=== PATIENT | female | born 1960 | race African-American/Black ===

== ENCOUNTER → 2016-08-12 | Outpatient (CLI) | payer BC ==
[~2016-08-12] MED LIST: AVALIDE 150-12.1 TAB PO; CAPTOPRIL25 MG; CEPHALEXIN500 M1 PO; COREG CR20 MG
--- NOTE | ~2016-08-12 | MY11 ---
[facility] A Service of [facility] RADIOLOGY TEXT RESULTS PATIENT: PRADEEP MONTOYA LOCATION: [facility] : 62 UNIT #: [id number] AGE: [address]: Ramy Moran APRN SEX: F ORDER DR: [id number] [facility] [address] [place], [place] [address] [id number] O MR#: [id number] Acc #: [id number] NAME: PRADEEP MONTOYA : 1960 SEX: F STUDY DATE/TIME: 08/12/2016 9:22 UNIT: [facility] ROOM: STUDY DESCRIPTION: MY Mammogram Screening [facility] Attending Physician: Ramy Moran A.P.R.N. Referring Physician: Ramy Moran A.P.R.N. Ordering Physician: Ramy Moran A.P.R.N. Primary Care Physician: Ramy Moran A.P.R.N. MEDICAL IMAGING REPORT This report is preliminary unless electronic signature is present EXAM Digital screening mammogram 08/12/2016 HISTORY 56-year-old woman no risk elevation. Annual screen. COMPARISON Mammograms date to 12/12/2009 with most recent 08/22/2014. FINDINGS Digital imaging of each breast was completed utilizing screening protocol. Review includes FDA-approved CAD device. Breast parenchyma is fatty replaced. Image-guided biopsy marker projects anterior third left breast. Benign calcifications project deep central left breast. I see no suspicious mass. There are no suspicious microcalcifications and no architectural deformity. IMPRESSION Negative mammogram. Annual screening recommended. Patients over the age of 40 are entered into a reminder system with target due date for the next mammogram. A result letter will also be sent to the patient. BIRADS: 1 Negative Dictated by... Chemo Delaney M.D. THIS IS AN ELECTRONICALLY VERIFIED REPORT Chemo Delaney M.D. at 08/12/2016 11:41 AM JBB/charla [facility] A Service of [facility] RADIOLOGY TEXT RESULTS PATIENT: PRADEEP MONTOYA LOCATION: [facility] : 62 UNIT #: [id number] AGE: [address]: Ramy Moran MANAGER PROGRAM MANAGEMENT SEX: F ORDER DR: TD: 08/12/2016 11:22 JOB #: [id number] MEDICAL IMAGING REPORT Page 1 of 1 COPY
== END | disposition home or self-care (01) ==
LOC: CWCC 08-04 12:45
DX: Z12.31 Encounter for screening mammogram for malignant neoplasm of breast (principal)
CPT/HCPCS: G0202